=== PATIENT | male | born 1970 | race Caucasian/White ===

== ENCOUNTER 2018-12-04 13:30 | Outpatient (RCR) | payer BC, SELFPAY ==
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
== END 2018-12-04 19:00 | disposition home or self-care (01) ==
LOC: SP 13:30
PROVIDERS: Family Provider Family Medicine; PCP Family Medicine
DX: I65.21 Occlusion and stenosis of right carotid artery (principal); D72.829 Elevated white blood cell count, unspecified; R53.1 Weakness; T14.8XXA Other injury of unspecified body region, initial encounter; R20.0 Anesthesia of skin; V94.9XXD Unspecified water transport accident, subsequent encounter
CPT/HCPCS: 92507; 92523; 97110; 97166; 97530